=== PATIENT | female | born 1970 | race Caucasian/White ===

== ENCOUNTER 2021-01-03 14:30 | Emergency (ER) | payer OTHER, SELFPAY ==
--- NOTE | ~2021-01-03 | CT_ITS ---
EXAMINATION: CT abdomen pelvis w con EXAM DATE: 01/03/2021 18:37 INDICATION: Right lower quadrant pain. TECHNIQUE: Spiral CT of the abdomen and pelvis was performed following intravenous injection of 100 m L Omnipaque 350. Axial, coronal and sagittal images were reviewed. The dose-length product (DLP) fo r this examination was 760.97 mGy-cm. The exposure was tailored according to patient size (auto mA e xposure control), and iterative reconstruction (ASIR) was used as additional dose reduction technique . There is no prior study for comparison. FINDINGS: There is a left adrenal gland lesion measuring 2.0 x 1.2 cm, statistically most likely vera lucio but not meeting density criteria on this postcontrast exam. The liver, spleen, adrenal glands an d pancreas are otherwise unremarkable. There are cholecystectomy clips. Portal and splenic veins ar e patent. Kidneys enhance symmetrically. There is no hydronephrosis. The uterus is unremarkable. Right ovary identified and within normal size limits. The bladder is unremarkable. There is no retr operitoneal or pelvic lymphadenopathy. The appendix is normal. The stomach and small bowel are unremarkable. There is expected amount of c olonic stool. No free intraperitoneal gas. The heart is normal in size. There are no pericardial or pleural effusions. The lung bases are unremarkable. There are no osteoblastic or osteolytic les ions identified. IMPRESSION: 1. No acute intra-abdominal findings. 2. Incidental left adrenal gland lesion statistically most likely adenoma assuming absence of known primary malignancy. Consider follow-up adrenal CT, assuming no outside studies available for comparis on. Reviewed, dictated and finalized at location A. O OPERATOR GROUND IMPRESSION: 1. No acute intra-abdominal findings. 2. Incidental left adrenal gland lesion statistically most likely adenoma assu jo absence of known primary malignancy. Consider follow-up adrenal CT, assumi ng no outside studies available for comparison.
--- NOTE | ~2021-01-03 | US_ITS ---
EXAMINATION: US pelvic complete w TV EXAM DATE: 01/03/2021 18:05 INDICATION: Right ovarian cyst, pain. Rule out torsion. TECHNIQUE: Pelvic transabdominal and transvaginal sonogram was performed. There are multiple graysca le and Doppler images available for interpretation. There is no prior study for comparison. FINDINGS: Uterus measures 6.1 x 4.0 x 3.5 cm, with 1 cm anterior fibroid. Endometrial stripe measure s 7 mm, within normal limits. There is no free pelvic fluid. Right adnexa: The ovary measures 2.8 x 1.3 x 2.3 cm and is morphologically normal. Ovarian vascular f low confirmed. Left adnexa: The ovary is not identified. There is no adnexal mass. IMPRESSION: 1. Unremarkable pelvic ultrasound exam. 2. Morphologically normal right ovary. Left not identified. Reviewed, dictated and finalized at location A. INIST BENCH
[2021-01-03 14:38] VITALS: BP 118/91; PULSE 85; RESP 18; TEMP 36.1; O2SAT 97
[2021-01-03 15:04] LABS: Basophils Absolute Auto 0.1 K/mm3 (0.0-0.1); Basophils Percent Auto 0.7 % (0.2-1.2); Eosinophils Absolute Auto 0.2 K/mm3 (0-0.3); Eosinophils Percent Auto 2.2 % (0-4.4); Hematocrit 44.4 % (37.0-47.0); Hemoglobin 14.9 g/dL (12.0-15.0); Immature Granulocyte Absolute 0.04 K/mm3 (0.00-0.031); Immature Granulocyte Percent A 0.4 % (0-0.5); Lymphocytes Absolute Auto 2.28 K/mm3 (0.9-3.2); Lymphocytes Percent Auto 23.2 % (18.3-44.2); Mean Corpuscular HGB Conc 33.6 g/dl (32-36); Mean Corpuscular Hemoglobin 31.6 pg (26-34); Mean Corpuscular Volume 94.1 fl (80-100); Mean Platelet Volume 11.6 fl (7.4-10.4); Monocytes Absolute Auto 0.7 K/mm3 (0.1-0.6); Monocytes Percent Auto 7.5 % (2.6-8.5); Neutrophils Absolute Auto 6.5 K/mm3 (1.3-6.7); Platelet Count Result 293 k/mm3 (150-375); Red Blood Count 4.72 M/mm3 (4.2-5.4); Red Cell Distribution Width 14.6 % (11.5-14.5); White Blood Count 9.8 K/mm3 (4.5-10.0)
[2021-01-03 15:16] LABS: Alanine Aminotransferase 13 U/L (4-35); Albumin Level 4.3 g/dL (3.5-5.1); Alkaline Phosphatase 67 U/L (38-126); Anion Gap 11 mmol/L (8-16); Aspartate Amino Transferase 19 U/L (14-36); Bilirubin,Total 0.3 mg/dL (0.2-1.3); Blood Urea Nitrogen 12 mg/dL (7-17); Calcium 8.9 mg/dL (8.4-10.2); Carbon Dioxide 19 mmol/L (22-30); Chloride 109 mmol/L (98-107); Estimated CRCL calculation 80 ml/min; Estimated Glomerular Filt Rate > 60; Glucose 113 mg/dL (65-105); Lipase 64 U/L (23-300); Sodium 139 mmol/L (137-145)
--- NOTE | 2021-01-03 17:35 | ED.ABDPAIN ---
HPI - Abdominal Pain General Chief Complaint: Abdominal Pain Stated Complaint: low abd pain Time Seen by Provider: 01/03/21 16:32 Source: patient Mode of arrival: ambulatory Limitations: no limitations History of Present Illness HPI narrative: Patient is 50 years old white female presents with right lower quadrant pain associated with vaginal bleeding over the last 2 weeks. Last menstrual. Was 7 months ago. Patient reported the bleeding and pain gradually getting worse, lately been heavy, sharp pain right lower quadrant and intravaginally. Patient denies any aggravating or relieving factors. Patient reported having similar symptoms in 2013 with a diagnosis of left ovarian cyst required ovariectomy. Patient denies any fever, chills, nausea, vomiting. Patient is a smoker, does not drink or use drugs. History of PTSD and anxiety. Patient is 1, para 1 0. Related Data Allergies Allergy/AdvReac Type Severity Reaction Status Date / Time aspirin Allergy Severe Rash Verified 01/03/21 14:43 Review of Systems Review of Systems: Narrative: CONSTITUTIONAL: Denies fever, chills, or sweats. EYES: Denies visual changes, redness, or discharge. ENT: Denies rhinorrhea, congestion, sore throat, or otalgia. CARDIOVASCULAR: Denies chest pain, palpitations, or edema. RESPIRATORY: Denies cough or dyspnea. GASTROINTESTINAL: Denies abdominal pain, nausea, vomiting, or diarrhea. GENITOURINARY: Denies dysuria or hematuria. SKIN: Denies rash or itching. MUSCULOSKELETAL: Denies back pain, joint pain, or myalgia. NEUROLOGIC: Denies headache, numbness, or weakness. PSYCHIATRIC: Denies anxiety or depression. PMFSH Social History Social History Gender identity (if verbalized by the patient): Female Exam Narrative: Exam Narrative: General appearance: Well-developed, well-nourished Skin: Normal color Head: Normocephalic, nontraumatic Eyes: Clear conjunctiva ENT: Oropharynx normal, ears normal, nose normal Neck: Supple, nontender Chest and respiratory: Airway patent, no respiratory distress, no accessory muscle use Heart: Regular rate/rhythm Abdomen: Soft, moderate tenderness right lower quadrant, no organomegaly, quiet bowel sounds Vascular: Normal peripheral pulses, normal capillary refill. 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, no gross motor deficit : External Female Exam: normal external appearance Speculum Exam - Vagina: normal appearance of the vagina, normal palpation and vaginal bleeding (1-1/2 long Q-tip required to dry the whol vaginal pouch) Speculum Exam - Cervix: normal appearance of the cervix and Cervical os closed Bimanual Exam- Adnexa, other: tender (Right adnexal tenderness, no mass) Course Course Emergency Course: Stable Vital Signs Vital signs: Vital Signs Temperature 36.1 C L 01/03/21 14:38 Pulse Rate 85 01/03/21 14:38 Respiratory Rate 18 01/03/21 14:38 Blood Pressure 118/91 H 01/03/21 14:38 Pulse Oximetry 97 01/03/21 14:38 Temperature 36.7 C 01/03/21 20:48 Pulse Rate 61 01/03/21 20:48 Respiratory Rate 16 01/03/21 20:48 Blood Pressure 112/73 01/03/21 20:48 Pulse Oximetry 100 01/03/21 20:48 MDM - Abdominal Pain Lab Data Result diagrams: 01/03/21 14:50 01/03/21 14:50 Labs: Lab Results 01/03/21 01/03/21 01/03/21 Range/Units 14:50 14:50 14:50 WBC 9.8 (4.5-10.0) K/mm3 RBC 4.72 (4.2-5.4) M/mm3 Hgb 14.9 (12.0-15.0) g/dL Hct 44.4 (37.0-47.0) % MCV 94.1 (80-100) fl MCH 31.6 (26-34) pg MCHC 33.6 (
[2021-01-03] MEDS: SODIUM CHLORIDE 0.9% IV 1,000 ML 999 ML IV CONT (17:42)
[2021-01-03] MEDS: ONDANSETRON INJ 4 MG/2 ML VIAL IV PUSH (17:42)
[2021-01-03] MEDS: MORPHINE SULFATE (*CRX) 4 MG/ML INJ IV PUSH (17:44)
[2021-01-03 20:02] LABS: Add Urine Microscopic? YES; Appearance Urine Clear (Clear); Bilirubin Urine Negative (Negative); Blood Urine 3+ (Negative); Color Urine Straw (Yellow); Glucose Urine UA Negative (Negative); Ketones Urine Negative (Negative); Leukocyte Esterase Ur Negative LEU/UL (Negative); Nitrate Urine Negative (Negative); Protein Urine Negative (Negative); RBC Urine 0-2 /hpf (0-2); Squamous Epithelial Cell Urine Many /hpf (Few); Urobilinogen Urine Negative mg/dL (<2.0); WBC Urine 0-3 /hpf
[2021-01-03 20:07] LABS: Specific Grav Ur 1.042 (1.001-1.035)
[2021-01-03 20:48] VITALS: BP 112/73; PULSE 61; RESP 16; TEMP 36.7; O2SAT 100
== END 2021-01-03 21:02 | disposition home or self-care (01) ==
PROVIDERS: Emergency Provider Emergency Medicine
DX: N93.8 Other specified abnormal uterine and vaginal bleeding (principal); R10.31 Right lower quadrant pain; R93.422 Abnormal radiologic findings on diagnostic imaging of left kidney
CPT/HCPCS: 36415; 74177; 76830; 76856; 80053; 81001; 83690; 85025; 86850; 86900; 86901; 96361; 96374; 96375; 99284; J2270; J2405; J7030; Q9967

== ENCOUNTER 2021-07-11 14:14 | Emergency (ER) | payer MEDICAID, SELFPAY ==
[2021-07-11] VITALS (7 sets, daily range): BP systolic 105–126; BP diastolic 72–88; PULSE 72–86; RESP 14–23; TEMP 36.3–36.8; O2SAT 95–100
--- NOTE | ~2021-07-11 | CT_ITS ---
EXAMINATION: CT abdomen pelvis w con DATE: 07/11/2021 15:37 INDICATION: Right lower quadrant abdominal pain. Nausea and vomiting. TECHNIQUE: Computed tomography (CT) of the abdomen and pelvis was performed with 100 mL Omnipaque 350 intravenous contrast. Automated exposure control and iterative reconstruction technique were employe d. The dose-length product was 811.43 mGy-cm. COMPARISON: CT abdomen and pelvis 01/03/2021 FINDINGS: The visualized portions of the lung bases demonstrate mild atelectasis. No pleural effusion . The heart size is normal. No pericardial effusion. The liver is normal. There are changes of cholec ystectomy. The spleen, pancreas, and right adrenal gland are normal. There is a 2.0 cm left adrenal m ass without change, likely an adenoma. There is cortical thinning of the kidneys. There are no dilate d loops of bowel. The appendix is normal. There are no pathologically enlarged lymph nodes. There is no free intraperitoneal fluid. There is a 10 mm fibroid in the uterus. There is a small supraumbilica l ventral hernia containing fat. There is moderate lumbar spondylosis and mild thoracic spondylosis. IMPRESSION: 1. Small uterine fibroid. Reviewed, dictated and finalized at location A. IMPRESSION: 1. Small uterine fibroid.
[2021-07-11 14:58] LABS: Basophils Absolute Auto 0.1 K/mm3 (0.0-0.1); Basophils Percent Auto 1.1 % (0.2-1.2); Eosinophils Absolute Auto 0.7 K/mm3 (0-0.3); Eosinophils Percent Auto 6.4 % (0-4.4); Hematocrit 43.3 % (37.0-47.0); Hemoglobin 14.3 g/dL (12.0-15.0); Immature Granulocyte Absolute 0.03 K/mm3 (0.00-0.031); Immature Granulocyte Percent A 0.3 % (0-0.5); Lymphocytes Absolute Auto 2.97 K/mm3 (0.9-3.2); Lymphocytes Percent Auto 27.8 % (18.3-44.2); Mean Corpuscular Hemoglobin 32.6 pg (26-34); Mean Corpuscular Volume 98.6 fl (80-100); Mean Platelet Volume 11.1 fl (7.4-10.4); Monocytes Percent Auto 8.9 % (2.6-8.5); Neutrophils Absolute Auto 5.9 K/mm3 (1.3-6.7); Neutrophils Percent Auto 55.5 % (45.5-73.1); Platelet Count Result 322 k/mm3 (150-375); Red Blood Count 4.39 M/mm3 (4.2-5.4); Red Cell Distribution Width 13.5 % (11.5-14.5); White Blood Count 10.7 K/mm3 (4.5-10.0)
--- NOTE | 2021-07-11 15:03 | ED.GENADULT ---
HPI - General Adult General Chief complaint: Abdominal Pain Stated complaint: Abd Pain,Vaginal Bleeding Time Seen by Provider: 07/11/21 14:49 Source: patient Mode of arrival: ambulatory Limitations: no limitations History of Present Illness HPI narrative: 50 years old white female presents with sudden onset of right lower quadrant pain associated with vaginal bleeding. Patient is telling me that she is scheduled for complete hysterectomy next week. Patient does not know why. Last menstrual cycle was January 2021. Patient denies any fever, chills, nausea, vomiting, headache, chest pain, shortness of breath, urinary symptoms, constipation, diarrhea. History of cholecystectomy, left oophorectomy. History of chronic back pain, smoking, does not drink or uses drugs. Related Data Home Medications Medication Instructions Recorded Confirmed alprazolam 1 mg PO TID PRN 07/11/21 gabapentin 600 mg PO QID 07/11/21 methocarbamol 1,500 mg PO QID 07/11/21 topiramate 100 mg PO QID 07/11/21 Allergies Allergy/AdvReac Type Severity Reaction Status Date / Time aspirin Allergy Severe Rash Verified 07/11/21 14:43 Review of Systems Review of Systems: CONSTITUTIONAL: Denies fever, chills, or sweats. EYES: Denies visual changes, redness, or discharge. ENT: Denies rhinorrhea, congestion, sore throat, or otalgia. CARDIOVASCULAR: Denies chest pain, palpitations, or edema. RESPIRATORY: Denies cough or dyspnea. GASTROINTESTINAL: Denies abdominal pain, nausea, vomiting, or diarrhea. GENITOURINARY: Denies dysuria or hematuria. SKIN: Denies rash or itching. MUSCULOSKELETAL: Denies back pain, joint pain, or myalgia. NEUROLOGIC: Denies headache, numbness, or weakness. PSYCHIATRIC: Denies anxiety or depression. PMFSH Social History Social History Gender identity (if verbalized by the patient): Female Exam Narrative: General appearance: Well-developed, well-nourished Skin: Normal color Head: Normocephalic, nontraumatic Eyes: Clear conjunctiva ENT: Oropharynx normal, ears normal, nose normal Neck: Supple, nontender Chest and respiratory: Airway patent, no respiratory distress, no accessory muscle use Heart: Regular rate/rhythm Abdomen: Soft, moderate tenderness right lower quadrant, slight guarding, no rebound r, no organomegaly, quiet bowel sounds Vascular: Normal peripheral pulses, normal capillary refill. 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 is normal as tested, no gross motor deficit : External Female Exam: normal external appearance Speculum Exam - Vagina: normal appearance of the vagina, normal palpation and vaginal bleeding (Mild bleeding, was not enough to saturate 1 long Q-tip.) Speculum Exam - Cervix: normal appearance of the cervix and normal palpation Course Course Emergency Course: Stable Vital Signs Vital signs: Vital Signs Temperature 36.3 C L 07/11/21 14:27 Pulse Rate 85 07/11/21 14:27 Respiratory Rate 18 07/11/21 14:27 Blood Pressure 105/73 07/11/21 14:27 Pulse Oximetry 100 07/11/21 14:27 Temperature 36.3 C L 07/11/21 14:27 Pulse Rate 72 07/11/21 15:01 Respiratory Rate 23 H 07/11/21 15:01 Blood Pressure 126/72 07/11/21 15:01 Pulse Oximetry 99 07/11/21 15:01 Medical Decision Making MDM Narrative Medical decision making narrative: Right lower quadrant pain. Associated with vaginal bleeding. Ovarian cyst rupture, cystitis, appendicitis, constipation is my concern. Labs, CT abdomen pelvis with IV contrast. Work-up did not show any significant finding to keep patient in the emergency room. Celeste
[2021-07-11 15:10] LABS: Alanine Aminotransferase 20 U/L (4-35); Albumin Level 4.1 g/dL (3.5-5.1); Alkaline Phosphatase 78 U/L (38-126); Anion Gap 8 mmol/L (8-16); Aspartate Amino Transferase 26 U/L (14-36); Bilirubin,Total 0.3 mg/dL (0.2-1.3); Blood Urea Nitrogen 12 mg/dL (7-17); Calcium 8.7 mg/dL (8.4-10.2); Carbon Dioxide 20 mmol/L (22-30); Chloride 110 mmol/L (98-107); Estimated CRCL calculation 80 ml/min; Estimated Glomerular Filt Rate > 60; Glucose 105 mg/dL (65-110); Lipase 47 U/L (23-300); Potassium 3.6 mmol/L (3.4-5.0); Sodium 138 mmol/L (137-145)
[2021-07-11] MEDS: SODIUM CHLORIDE 0.9% IV 1,000 ML 999 ML IV CONT (15:28)
[2021-07-11 16:24] LABS: Add Urine Microscopic? YES; Appearance Urine Clear (Clear); Bilirubin Urine 1+ (Negative); Blood Urine 2+ (Negative); Color Urine Yellow (Yellow); Glucose Urine UA Negative (Negative); Ketones Urine Negative (Negative); Leukocyte Esterase Ur Negative LEU/UL (Negative); Mucus Urine Rare /lpf; Nitrate Urine Negative (Negative); Protein Urine Negative (Negative); RBC Urine 0-2 /hpf (0-2); Specific Grav Ur 1.019 (1.001-1.035); Squamous Epithelial Cell Urine Few /hpf (Few); Urobilinogen Urine Negative mg/dL (<2.0); WBC Urine 0-3 /hpf
--- NOTE | 2021-07-11 16:44 | PC.NURSE ---
Pelvic exam completed per Dr. Wiggins, pt tolerated well. Minimal amount blood noted on swab.
[2021-07-11] MEDS: ACETAMINOPHEN 500 MG TABLET 1000 MG PO (16:53)
== END 2021-07-11 17:10 | disposition home or self-care (01) ==
PROVIDERS: Emergency Provider Emergency Medicine
DX: N93.8 Other specified abnormal uterine and vaginal bleeding (principal); D25.9 Leiomyoma of uterus, unspecified
CPT/HCPCS: 36415; 74177; 80053; 81001; 81025; 83690; 85025; 96360; 99284; A9270; J7030; Q9967